=== PATIENT | male | born 1940 | race Caucasian/White ===

== ENCOUNTER 2016-09-24 05:37 | Day surgery (SDC) | payer BC ==
[2016-09-19 09:58] VITALS: BMI 28.0
--- NOTE | 2016-09-19 10:40 | PAT Medication Instructions ---
Service Date Sep 19, 2016. Current Home Medication List Acetaminophen (Tylenol), 2 TAB PO Q8 PRN for Pain or Fever Alendronate Sodium (Fosamax), 1 TAB PO WK Aspirin (Aspirin Ec), 81 MG PO QPM Atorvastatin (Lipitor), 40 MG PO QPM Calcium/Vitamin D (Os-Shorty 500 Plus D), 1 TAB PO QPM Ibuprofen (Advil), 200 MG PO Q6 PRN for Pain Latanoprost (Xalatan 0.005% Oph Nenita), 1 DROPS OPB HS Lisinopril (Lisinopril), 1 TAB PO QAM Multivitamin (Multivitamin), 1 TAB PO QPM Timolol Maleate (Ophth) (Timoptic-Xe 0.5% Oph), 1 DROPS OPL QAM Medication Instructions For Your Scheduled Surgery - Check with surgeon for instructions: Aspirin (Aspirin Ec), 81 MG PO QPM Ibuprofen (Advil), 200 MG PO Q6 PRN for Pain - Continue as directed: Alendronate Sodium (Fosamax), 1 TAB PO WK (Mondays) - Hold the following medications the morning of surgery: Lisinopril (Lisinopril), 1 TAB PO QAM - Take the following medications the morning of surgery with a sip of water: Timolol Maleate (Ophth) (Timoptic-Xe 0.5% Oph), 1 DROPS OPL QAM Acetaminophen (Tylenol), 2 TAB PO Q8 PRN for Pain or Fever (if needed) - Take the following medications as scheduled the night before surgery: Multivitamin (Multivitamin), 1 TAB PO QPM Latanoprost (Xalatan 0.005% Oph Nenita), 1 DROPS OPB HS Calcium/Vitamin D (Os-Shorty 500 Plus D), 1 TAB PO QPM Atorvastatin (Lipitor), 40 MG PO QPM Acetaminophen (Tylenol), 2 TAB PO Q8 PRN for Pain or Fever (if needed) If you have any questions please call us at [phone] or [phone] or [phone]
[~2016-09-24] VITALS: Ht 167.6 cm; Wt 80.2 kg
[~2016-09-24 05:37] MED LIST: ACET-1256 PO; ALEN70TA2 PO; ASPI81TA28 PO; ATOR-24 PO; CALC500C70 PO; IBUP-1050 PO; LATA0.5S OPB; LSN40 PO; MULT-506 PO; TIMO0.5S2 OPL
[2016-09-24 05:56] VITALS: BP 168/91; PULSE 68; TEMP 36.8; O2SAT 96; Ht 167.6 cm; Wt 80.2 kg
[2016-09-24] MEDS ORDERED: LACTATED RINGER'S 1000ML 1,000 ML IV SCH (06:00)
[2016-09-24] MEDS ORDERED: CEFAZOLIN 2000 MG/60 ML D5W IV SCH (06:00)
[2016-09-24] MEDS ORDERED: ONDANSETRON INJ 2 MG/ML 2 ML VIAL ONE (06:40)
[2016-09-24] MEDS ORDERED: LIDOCAINE HCL 2% 2 ML VIAL (20MG/ML) ONE (06:40)
[2016-09-24] MEDS ORDERED: MIDAZOLAM HCL 1 MG/ML 2ML VIAL ONE (06:40)
[2016-09-24] MEDS ORDERED: PROPOFOL IV EMULSION 10 MG/ML 20 ML VIAL IV ONE ×2 (06:40→07:57)
[2016-09-24] MEDS ORDERED: DEXAMETHASONE SOD INJ 4 MG/ML VIAL ONE (06:40)
[2016-09-24] MEDS ORDERED: FENTANYL CITRATE INJ 50 MCG/1 ML 2 ML VIAL ONE (06:41)
--- NOTE | 2016-09-24 07:01 | History & Physical Bridge Note ---
H&P Re-Evaluation Bridge Note: I have examined the patient, reviewed the History & Physical and in the interval since the performance of the History & Physical I have noted the following changes of clinical significance: No changes noted
[2016-09-24] MEDS ORDERED: LIDOCAINE HCL 1% 20 ML VIAL ONE ×2 (07:02→07:46)
[2016-09-24] MEDS ORDERED: BACITRACIN OINT 15 GM TUBE ONE (07:02)
[2016-09-24] MEDS ORDERED: BUPIVACAINE 0.5 % 5 MG/1 ML MPF 30ML VIAL ONE ×2 (07:02→07:46)
[2016-09-24] MEDS ORDERED: ONDANSETRON INJ 2 MG/ML 2 ML VIAL IV PRN (07:30)
[2016-09-24] MEDS ORDERED: ATROPINE SULFATE 0.1 MG/ML 5ML SYR IV PRN (07:30)
[2016-09-24] MEDS ORDERED: FENTANYL CITRATE INJ 50 MCG/1 ML 2 ML VIAL IV PRN (07:30)
[2016-09-24] MEDS ORDERED: KETOROLAC TROMETHAMINE 15 MG/ML VIAL IV. PRN (07:30)
[2016-09-24] MEDS ORDERED: SODIUM CHLORIDE 0.9% 1000ML 1,000 ML IV SCH (08:23)
--- NOTE | 2016-09-24 08:26 | [facility] Post Operative Brief Note ---
Immediate Operative Summary Operative Date Sep 24, 2016. Pre-Operative Diagnosis Recurrent Right Inguinal Hernia Post-Operative Diagnosis Recurrent Right Inguinal Hernia Procedure(s) Performed Open Repair Recurrent Right Inguinal Hernia with Mesh Surgeon Dr. Parisi Health Care Analyst Surgeon(s) none Estimated Blood Loss 5 ML Findings right indrect inguinal hernia, recurrent Specimens NONE PER SURGEON Drains none Anesthesia sedation + local Complication(s) None Disposition Recovery Room / PACU
[2016-09-24] MEDS ORDERED: OXYC-57 PO (08:28)
[2016-09-24] MEDS ORDERED: OXYCODONE/ACETAMINOPHEN 5-325 TAB PO PRN (08:30)
[2016-09-24] MEDS ORDERED: MoRPHine SULFATE 2 MG/ML CARP IV PRN (08:30)
--- NOTE | 2016-09-24 08:32 | Discharge Instructions ---
Discharge Instructions Date of Service Sep 24, 2016. Visit Reason for Visit: Recurrent Right Inguinal Hernia Discharge Discharge Diagnosis / Problem: S/P open repair right inguinal hernia with mesh Discharge Goals Goal(s): Decrease discomfort, Improve function Activity Recommendations Activity Limitations: per Instructions/Follow-up section Lifting Limitations: no more than 25 pounds Exercise/Sports Limitations: rest today, gradually increase as tolerated May Resume Sexual Activity: when tolerated Shower/Bathe: may shower/bathe in 3 days Driving or Machine Use: resume 3 days after discharge Anesthesia . Post Anesthesia Instructions: If you have had General Anesthesia or IV Sedation: * Do not drive today. * Resume driving when surgeon permits. * Do not make important decisions or sign legal documents today. * Call surgeon for: 1. Temperature elevations greater than 101 degrees F. 2. Uncontrollable pain. 3. Excessive bleeding. 4. Persistent nausea and vomiting. 5. Medication intolerance (nausea, vomiting or rash). * For nausea and vomiting use only clear liquids such as: tea, soda, bouillon until nausea subsides, then gradually increase diet as tolerated. * If you have any concerns or questions, call your surgeon's office. If physician is unavailable and it is an emergency, call 911 or go to the nearest emergency room. . Instructions / Follow-Up Instructions / Follow-Up keep the dressing on for 4 days, he can take a shower on 09/27/2016, no driving while taking pain medicine, follow up 1 week, . Diet Recommendations Recommended Home Diet: resume previous diet Procedures Procedures Performed: Open Repair Recurrent Right Inguinal Hernia with Mesh Pending Studies Studies pending at discharge: no Medical Emergencies . Who to Call and When: Medical Emergencies: If at any time you feel your situation is an emergency, please call 911 immediately. . Non-Emergent Contact Non-Emergency issues call your: Surgeon Call Non-Emergent contact if: you have a fever, temperature is above 100.5, your pain is not controlled, your pain is worsening, wound has increased drainage, wound has increased redness . . "Provider Documentation" section prepared by Radha Parisi. . [place] Drug Monitoring Program Search Results: no issues identified
[2016-09-24 08:50] VITALS: BP 163/80; PULSE 51; TEMP 36.6; O2SAT 96
--- NOTE | 2016-09-24 08:57 | [facility] Operative Report ---
Operative Report Operative Date Sep 24, 2016. Pre-Operative Diagnosis Recurrent Right Inguinal Hernia Post-Operative Diagnosis Recurrent Right Inguinal Hernia Procedure(s) Performed Open Repair Recurrent Right Inguinal Hernia with Mesh Surgeon Dr. Parisi Interventional Physiatrist Surgeon(s) none Estimated Blood Loss 5 ML Findings right indirect inguinal hernia, recurrent, Fluids 800ml Specimens NONE PER SURGEON Drains none Anesthesia sedation + local Complication(s) None Disposition Recovery Room / PACU Indications patient is a 76 years old gentleman who presented recurrent right inguinal hernia, patient will require open repair right inguinal hernia with mesh, I talked to patient about benefits, risk alternate of the procedure, I indicates the risks may including but not limit, such as bleeding, infection, hernia recurrence, and chronically incision pain, patient understand he signed informed consent, I answered all questions. , Description of Procedure We bring patient to the operative room and put him on superior position, patient received SCD on the bilateral leg to prevent DVT, patient received 2 gm Ancef IV for prophylactic antibiotic, patient received sedation by his anesthesiology, the patient right lower abdomen and groin area prepped and dripped in routine sterilization, after timeout, injections of local anesthesai by using 1% lidocaine mix 0.5% Marcaine on right inguinal area, then I'm make a 4 cm incision on the right inguinal area, open by layer to reach cold structure, passing a Re over cord structure, and we found the patient had the right direct inguinal hernia, I mobilized the hernia sac then reduced the hernia sac to abdominal cavity, then I use extra large hernia plug to block the hernia sac, then I use prolene mesh to reinforce the posterior wall by using 2-0 Prolene suture continual running mesh to his inguinal ligament, medially the mesh to conjunt tender muscle layer, close external fashion layer by using 2-0 vcreyl, close subcutanous layer by using 2-0 vcreyl, close skin by using 4-0 suture, put the dressing on, all instrument, needle and spouze acount correct time 2, patient tolerated the procedure well, he was transfered to recovery room in stable condition. I attest to the content of the Intraoperative Record and any orders documented therein. Any exceptions are noted below.
--- NOTE | 2016-09-24 09:03 | Anesthesiology Progress Note ---
Anesthesia Post Op Note Date & Time Sep 24, 2016 at 09:02 Vital Signs Pain Intensity: 3.0 Vital Signs Past 12 Hours Date Time Temp Pulse Resp B/P (MAP) Pulse Ox O2 Delivery O2 Flow Rate FiO2 09/24/16 08:40 36.1 50 22 142/79 96 Room Air 09/24/16 08:30 52 18 145/82 100 Oxymask 4 09/24/16 08:24 36.1 50 16 132/74 100 Oxymask 10 09/24/16 05:56 36.8 68 18 168/91 (116) 96 Room Air Notes Mental Status: alert / awake / arousable, participated in evaluation Pt Amnestic to Procedure: Yes Nausea / Vomiting: adequately controlled Pain: adequately controlled Airway Patency, RR, SpO2: stable & adequate BP & HR: stable & adequate Hydration State: stable & adequate Anesthetic Complications: no major complications apparent
[2016-09-24 09:20] VITALS: BP_SYST 175; BP_SYST 189; BP_DIAS 84; BP_DIAS 86; PULSE 54; TEMP 36.5; TEMP 36.6; O2SAT 97; O2SAT 98
[2016-09-24 09:50] VITALS: BP 189/86; PULSE 54; TEMP 36.6; O2SAT 97
[2016-09-25] MEDS ORDERED: CEFAZOLIN IV 2,000 MG/60 ML D5W IV ONE (06:00)
== END 2016-09-24 10:05 | disposition home or self-care (01) ==
LOC: C.ACU 05:37
PROVIDERS: ATTEND Surgery
DX: K40.91 Unilateral inguinal hernia, without obstruction or gangrene, recurrent (principal); I10 Essential (primary) hypertension; K21.9 Gastro-esophageal reflux disease without esophagitis; G47.33 Obstructive sleep apnea (adult) (pediatric); H40.1190 Primary open-angle glaucoma, unspecified eye, stage unspecified; H44.20 Degenerative myopia, unspecified eye; C61 Malignant neoplasm of prostate; M81.0 Age-related osteoporosis without current pathological fracture; E78.5 Hyperlipidemia, unspecified; Z87.891 Personal history of nicotine dependence; Z79.82 Long term (current) use of aspirin; Z79.899 Other long term (current) drug therapy

== ENCOUNTER 2022-02-10 15:49 | Inpatient (IN) ==
[2022-02-10] MEDS ORDERED: fentaNYL citrate 100 MCG/2 ML VIAL IV STA ×2 (16:10→17:49)
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
[2022-02-10 16:58] LABS: Basophils # (auto) 0.05 K/uL (0-0.2); Basophils % (auto) 0.8 %; Eosinophils # (auto) 0.22 K/uL (0-0.50); Eosinophils % (auto) 3.5 %; Hematocrit (blood only) 36.3 % (40.1-51.0); Immature Granulocytes # (auto) 0.02 K/uL (0.00-0.02); Immature Granulocytes % (auto) 0.3 %; Lymphocytes # (auto) 0.53 K/uL (1.2-3.4); Lymphocytes % (auto) 8.4 %; Mean Corpuscular Hgb Conc 33.1 g/dL (32.0-36.0); Mean Corpuscular Volume 93.8 fL (80.0-100.0); Mean Platelet Volume 10.2 fL (9.4-12.4); Monocytes # (auto) 0.76 K/uL (0.24-0.82); Monocytes % (auto) 12.1 %; Neutrophils # (auto) 4.72 K/uL (1.4-6.5); Neutrophils % (auto) 74.9 %; Platelet Count 143 K/uL (130-400); RDW Coefficient of Variation 13.5 % (11.5-14.5); RDW Standard Deviation 46.5 fL (36.4-46.3); Red Blood Count 3.87 M/uL (4.63-6.08)
--- NOTE | 2022-02-10 17:07 | XRay Report ---
XR hip RT 2V w pelvis CLINICAL HISTORY: Fall. Right hip pain. COMPARISON STUDY: None. FINDINGS: Nondisplaced right inferior pubic ramus fracture. Probable nondisplaced fracture within the right superior pubic ramus. The sacrum appears intact. No dislocation. Brachytherapy seeds noted at the prostate gland. IMPRESSION: Nondisplaced right pubic ring fractures. ACT 112: Negative or not required by law. Electronically signed by: Yousif Zapata M.D. 02/10/2022 5:05 PM
--- NOTE | 2022-02-10 17:07 | XRay Report ---
XR chest 1V portable HISTORY: 81 years-old Male fall acute chest trauma status post fall COMPARISON: Thoracic spine radiographs 12/15/2008 TECHNIQUE: Semierect AP view of the chest FINDINGS: Cardiac silhouette is mildly enlarged. Atherosclerosis of the thoracic aorta. No pneumothorax, pleura l effusion, airspace consolidation or overt pulmonary edema. Bones appear grossly intact. IMPRESSION: No acute process. ACT 112: Negative or not required by law. The above report was generated using voice recognition software. It may contain grammatical, syntax o r spelling errors. Electronically signed by: Jose Espinoza M.D. 02/10/2022 5:06 PM
[2022-02-10 17:10] LABS: INR 1.3 (0.9-1.1); Prothrombin Time 13.5 Seconds (9.0-12.0)
--- NOTE | 2022-02-10 17:18 | XRay Report ---
XR knee RT 1 or 2V routine CLINICAL HISTORY: Fall. Right knee pain. COMPARISON STUDY: None. FINDINGS: No fracture or dislocation within the right knee. No significant knee effusion. Soft tissue s are unremarkable. Mild osteoarthritis within the right knee. IMPRESSION: No fracture or dislocation within the right knee. ACT 112: Negative or not required by law. Electronically signed by: Yousif Zapata M.D. 02/10/2022 5:16 PM
[2022-02-10 17:22] LABS: Albumin Globulin Ratio 1.4 (0.9-2); Albumin Level 3.6 gm/dl (3.4-5.0); BUN Creatinine Ratio 30.8 (10-20); Bilirubin,Total 1.9 mg/dl (0.2-1.0); Calcium 8.3 mg/dl (8.5-10.1); Est GFR (African American) 98.1 ml/min; Est GFR (Non-African American) 84.7 ml/min; Globulin 2.5 gm/dl (2.5-4.0); Magnesium 1.8 mg/dl (1.7-2.4); Potassium 3.8 mmol/L (3.5-5.1); Total Protein 6.1 gm/dl (6.0-8.3)
--- NOTE | 2022-02-10 17:24 | CT Scan Report ---
CT cervical spine wo con CLINICAL HISTORY: 81 years-old Male with fall. Acute head and neck injury status post fall COMPARISON: Head CT of same day. TECHNIQUE: Multiple axial CT images of the cervical spine were obtained without contrast. A dose low ering technique was utilized adhering to the principles of ALARA. FINDINGS: Demineralized appearance of the bones. Grade 1 anterolisthesis C7 on T1 is likely secondary to associated severe facet arthrosis. Multilevel intervertebral disc space narrowing, moderate at C5 -C6 and C6 or C7 with associated spondylitic spurring and posterior disc osteophyte complex formation s. Severe multilevel facet arthrosis with severe C1-C2 degeneration. Sclerotic focus measuring 1.0 cm is noted within the left lateral mass of C1 is suggestive of a probable bone island. Multilevel neur al foraminal narrowing. No acute fracture or subluxation is identified. No prevertebral edema. Complete opacification of the right maxillary sinus. Heterogeneous thyroid. T he visualized lung apices appear clear. IMPRESSION: No acute cervical spine fracture or subluxation identified. ACT 112: Negative or not required by law. The above report was generated using voice recognition software. It may contain grammatical, syntax o r spelling errors. Electronically signed by: Jose Espinoza M.D. 02/10/2022 5:22 PM
--- NOTE | 2022-02-10 17:24 | CT Scan Report ---
CT head/brain wo con CLINICAL HISTORY: 81 years-old Male with fall. Acute head and neck injury status post fall TECHNIQUE: Multiple axial CT images of the head were obtained without contrast. A dose lowering tech nique was utilized adhering to the principles of ALARA. CT DOSE: 1935.81 mGy.cm COMPARISON: CT cervical spine of same day, head CT 07/14/2007. FINDINGS: No acute intracranial hemorrhage, midline shift, intra-axial mass, hydrocephalus, territorial ischemi a or abnormal extra-axial collection. Age-related involutional changes with ex vacuo ventriculomegaly . White matter hypodensities suggestive of chronic microvascular ischemic disease. Fusiform dilation with tortuosity of the basilar artery again noted. 9 mm hyperdense extra-axial lesion adjacent to the posterior falx cerebri on image 17 series 2 has increased in size from the prior study suggestive of a benign meningioma. The calvarium is intact. Mastoid air cells are clear. Complete opacification of the right maxillary sinus. The remaining paranasal sinuses are generally clear. Indeterminate circumscribed 2.4 cm cystic structure of the superior left parietal calvarium, similar to prior and likely benign. Prior bilater al lens repair. IMPRESSION: 1. No acute intracranial abnormality or calvarial fracture. 2. Subcentimeter falx cerebri meningioma. 3. Complete opacification of the right maxillary sinus. ACT 112: Negative or not required by law. The above report was generated using voice recognition software. It may contain grammatical, syntax o r spelling errors. Electronically signed by: Jose Espinoza M.D. 02/10/2022 5:22 PM
--- NOTE | 2022-02-10 17:32 | CT Scan Report ---
ABDOMEN AND PELVIS CT WITHOUT CONTRAST CT DOSE: 291.63 mGy.cm HISTORY: Acute right hip pain status post fall pelvis and right hip radiographs 02/10/2022 TECHNIQUE: Multiaxial CT images of the abdomen and pelvis were performed without contrast. A dose lo wering technique was utilized adhering to the principles of ALARA. COMPARISON STUDY: Pelvis and hip radiographs of same day.. FINDINGS: Cardiomegaly with coronary artery calcifications. Punctate hyperdense foci noted throughout the right lung base suggestive of chronically aspirated barium. No pneumatosis or pneumoperitoneum. The unenhanced spleen, visualized pancreas and adrenal glands are unremarkable. The gallbladder appea rs to be contracted. There are numerous large cyst within the liver measuring up to approximately 9 c m. There are a few scattered coarse hepatic calcifications. The liver is mildly enlarged. Several hyp odensities within the liver are subcentimeter in size and are too small to characterize. Nonspecific bilateral perinephric stranding. 2 cm cyst of the interpolar right kidney demonstrates mi nimal layering milk of calcium. 4 mm hyperdense focus of the interpolar left kidney is too small to c haracterize. Brachial therapy seeds are noted within the enlarged prostate. Nonspecific urinary bladd er wall thickening with perivesicular stranding. Atherosclerosis of the abdominal aorta with tortuosi ty. Right retrocrural lymph node measures 1.1 cm and is indeterminate. No bowel obstruction or bowel wall thickening. Colonic diverticulosis. Moderate colonic fecal retenti on. Stool-filled loops of small bowel are also noted. No CT evidence of acute appendicitis. Findings suggestive of prior right inguinal hernia repair. Degenerative changes of the spine, pelvis and hips. Acute tonsillitis fractures of the right superior and inferior pubic rami are confirmed by CT. Mild to moderate osteoarthritis of the hips. No additional acute fracture or dislocation identified. No sa cral insufficiency fracture is seen. Levoscoliosis of the thoracolumbar junction. IMPRESSION: 1. Confirmation of the acute nondisplaced right superior and inferior pubic rami fractures. 2. No additional acute fracture or dislocation identified. 3. No acute posttraumatic intra-abdominal or intrapelvic abnormality. 3. Numerous hepatic cysts. 4. No bowel obstruction or bowel wall thickening. 5. Additional findings as above. ACT 112: Negative or not required by law. The above report was generated using voice recognition software. It may contain grammatical, syntax o r spelling errors. Electronically signed by: Jose Espinoza M.D. 02/10/2022 5:30 PM
--- NOTE | 2022-02-10 18:26 | History & Physical Report ---
Date of Service February 10, 2022 Assessment & Plan (1) Fracture of pubic ramus: Plan: Fall with trauma and subsequent Acute nondisplaced right superior and inferior pubic rami fractures. On baby aspirin but no other blood thinners. Consult ortho, PT/OT with plans for rehab placement. Supportive care with scheduled Tylenol and additional pain medication as needed. Maintain boyce for comfort. NWB until see by orthopedics and activity restrictions are more clearly defined. (2) Fall: Plan: PT/OT once cleared by ortho to bear weight. (3) ASHISH on CPAP: Plan: cont CPAP qHS while admitted. (4) HTN (hypertension): Plan: chronic, around goal, cont amlodipine 5mg per home regimen. (5) DVT prophylaxis: Plan: SCDs Full Code Dispo-to floor pending assessments, then likely set up for rehab. Appreciate case management assistance with this. Jamaica Steinberg DO [facility] Hospitalist History of Present Illness Chief Complaint: fall with pain, unable to walk Primary Care Provider: Luis Veronica MD 81-year-old man status posttraumatic fall in his garage last night presents with right hip pain. Work-up reveals acute pubic ring fracture. He is on baby aspirin. He denies any other wrist pain, knee pain, headache or other issues at this time. He denies chest pain or shortness of breath. He has been unable to stand or bear any weight on his legs since he fell. He has a h/o osteoporosis per records. Today he does report slight confusion and needed to ask at one point why he was here again. Denies any pain currently. Allergies Allergy/AdvReac Type Severity Reaction Status Date / Time No Known Allergies Allergy Verified 09/24/16 05:52 Home Medications Medication Instructions Recorded Confirmed Type Systane (propylene glycol) 2 drp OPB HS PRN Dry Eyes 02/10/22 02/10/22 History amlodipine 5 mg tablet 5 mg PO DAILY 02/10/22 02/10/22 History aspirin 81 mg tablet 81 mg PO DAILY 02/10/22 02/10/22 History atorvastatin 40 mg tablet 40 mg PO DAILY 02/10/22 02/10/22 History calcium carbonate 500 mg-vitamin 1 tab PO DAILY 02/10/22 02/10/22 History D3 5 mcg (200 unit) tablet (Calcium 500 + D) dorzolamide 22.3 mg-timolol 6.8 1 drp OPB BID 02/10/22 02/10/22 History mg/mL eye drops latanoprost 0.005 % eye drops 1 drp OPL HS 02/10/22 02/10/22 History omeprazole 20 mg tablet,delayed 20 mg PO DAILYBB 02/10/22 02/10/22 History release Past Med/Surg History Medical History After cataract not obscuring vision Benign meningioma of brain Bilateral inguinal hernia 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 Parisi) right, 09/2016 S/P repair of hydrocele left hydrocelectomy and spermatocelectomy 06/20/[address] Keating at [facility] S/P tonsillectomy Family History Mother Glaucoma Lupus Father Hypertension Stroke Social History Smoking Status: Former smoker Do You Dip or Chew Tobacco: No; Hx Alcohol Use: Yes Hx Substance Use: No Preferred Language: [employer] [employer] Required: No Beliefs That Will Affect Care: None Current Living Situation: Spouse Other Information That Helps Us Care for You: No Feels Safe at Home: Yes Safety Concerns: Feels Safe At This Time Assistive Devices: Cane and Glasses Review of Systems Review of Systems: All systems reviewed negative except as indicated in HPI above. Physical Exam Physical Exam: CONSTITUTIONAL: WNWD, vitals as above, generally well- appearing, NAD EYES: EOMI bilaterally, PERRL, normal conjunctivae, no scleral icterus ENT: external ear and nose normal, MMM NECK: trachea midline RESPIRATORY: clear to auscultation bilaterally, no crackles, rales or wheezes, normal respiratory effort CARDIOVASCULAR: regular rate and rhythm, S1 and 2 heard without murmurs, gallops or rubs, no JVD, no peripheral edema CHEST: inspection of chest was normal GASTROINTESTINAL: soft, nontender, , ND, no guarding MUSCULOSKELETAL: strength 5/5 throughout except not moving legs much in setting of pubic ring fracture, head is normocephalic and atraumatic, neck supple SKIN: warm and dry, no bruises that are clearly seen. NEUROLOGIC: CN 2-12 grossly intact, no sensory deficit, normal cognition, normal speech, no tremor PSYCHIATRIC: alert cooperative and oriented to person, place and time. Euthymic mood, makes good eye contact, language grossly intact, recent and remote memory grossly intact. Results & Data Results & Data ([facility]) Vital Signs (Past 12 Hours) Vital Signs Temp Pulse Pulse Resp BP BP Pulse Ox 02/10/22 17:30 63 18 98 02/10/22 16:26 95 02/10/22 15:55 36.9 C 63 16 146/79 H 96 02/10/22 15:55 36.9 C 63 16 146/79 H 96 O2 Del Method 02/10/22 17:30 Room Air 02/10/22 16:26 Room Air 02/10/22 15:55 Room Air 02/10/22 15:55 Room Air Laboratory Results Short CBC 02/10/22 Range/Units 16:22 WBC 6.30 (4.8-10.8) K/ul Hgb 12.0 L (14.0-18.0) g/dl Hct 36.3 L (40.1-51.0) % Plt Count 143 (130-400) K/uL BMP 02/10/22 16:22 Sodium 141 Potassium 3.8 Chloride 111 H Carbon Dioxide 26 BUN 24 H Creatinine 0.78 Glucose 185 H Calcium 8.3 L Cardiac Enzymes 02/10/22 Range/Units 16:22 Total Creatine Kinase 249 H (30-223) U/L Liver Function 11/28/22 Range/Units 16:22 Total Bilirubin 1.9 H (0.2-1.0) mg/dl AST 27 (13-39) U/L ALT 37 (7-52) U/L Alkaline Phosphatase 81 (34-104) U/L Albumin 3.6 (3.4-5.0) gm/dl Diagnostic Findings Cervical Spine CT 02/10/22 16:09 CT cervical spine wo con CLINICAL HISTORY: 81 years-old Male with fall. Acute head and neck injury status post fall COMPARISON: Head CT of same day. TECHNIQUE: Multiple axial CT images of the cervical spine were obtained without contrast. A dose lowering technique was utilized adhering to the principles of ALARA. FINDINGS: Demineralized appearance of the bones. Grade 1 anterolisthesis C7 on T1 is likely secondary to associated severe facet arthrosis. Multilevel intervertebral disc space narrowing, moderate at C5-C6 and C6 or C7 with associated spondylitic spurring and posterior disc osteophyte complex formations. Severe multilevel facet arthrosis with severe C1-C2 degeneration. Sclerotic focus measuring 1.0 cm is noted within the left lateral mass of C1 is suggestive of a probable bone island. Multilevel neural foraminal narrowing. No acute fracture or subluxation is identified. No prevertebral edema. Complete opacification of the right maxillary sinus. Heterogeneous thyroid. The visualized lung apices appear clear. IMPRESSION: No acute cervical spine fracture or subluxation identified. ACT 112: Negative or not required by law. The above report was generated using voice recognition software. It may contain grammatical, syntax or spelling errors. Electronically signed by: Jose Espinoza M.D. 02/10/2022 5:[address] 02/10/22 16:09 CT head/brain wo con CLINICAL HISTORY: 81 years-old Male with fall. Acute head and neck injury status post fall TECHNIQUE: Multiple axial CT images of the head were obtained without contrast. A dose lowering technique was utilized adhering to the principles of ALARA. CT DOSE: 1935.81 mGy.cm COMPARISON: CT cervical spine of same day, head CT 07/14/2007. FINDINGS: No acute intracranial hemorrhage, midline shift, intra-axial mass, hydrocephalus, territorial ischemia or abnormal extra-axial collection. Age- related involutional changes with ex vacuo ventriculomegaly. White matter hypodensities suggestive of chronic microvascular ischemic disease. Fusiform dilation with tortuosity of the basilar artery again noted. 9 mm hyperdense extra-axial lesion adjacent to the posterior falx cerebri on image 17 series 2 has increased in size from the prior study suggestive of a benign meningioma. The calvarium is intact. Mastoid air cells are clear. Complete opacification of the right maxillary sinus. The remaining paranasal sinuses are generally clear. Indeterminate circumscribed 2.4 cm cystic structure of the superior left parietal calvarium, similar to prior and likely benign. Prior bilateral lens repair. IMPRESSION: 1. No acute intracranial abnormality or calvarial fracture. 2. Subcentimeter falx cerebri meningioma. 3. Complete opacification of the right maxillary sinus. ACT 112: Negative or not required by law. The above report was generated using voice recognition software. It may contain grammatical, syntax or spelling errors. Electronically signed by: Jose Espinoza M.D. 02/10/2022 5:22 PM Hip/Pelvis X-Ray 02/10/22 16:09 XR hip RT 2V w pelvis CLINICAL HISTORY: Fall. Right hip pain. COMPARISON STUDY: None. FINDINGS: Nondisplaced right inferior pubic ramus fracture. Probable nondisplaced fracture within the right superior pubic ramus. The sacrum appears intact. No dislocation. Brachytherapy seeds noted at the prostate gland. IMPRESSION: Nondisplaced right pubic ring fractures. ACT 112: Negative or not required by law. Electronically signed by: Yousif Zapata M.D. 02/10/2022 5:05 PM Knee X-Ray 02/10/22 16:09 XR knee RT 1 or 2V routine CLINICAL HISTORY: Fall. Right knee pain. COMPARISON STUDY: None. FINDINGS: No fracture or dislocation within the right knee. No significant knee effusion. Soft tissues are unremarkable. Mild osteoarthritis within the right knee. IMPRESSION: No fracture or dislocation within the right knee. ACT 112: Negative or not required by law. Electronically signed by: Yousif Zapata M.D. 02/10/2022 5:16 PM Chest X-Ray 02/10/22 16:10 XR chest 1V portable HISTORY: 81 years-old Male fall acute chest trauma status post fall COMPARISON: Thoracic spine radiographs 12/15/2008 TECHNIQUE: Semierect AP view of the chest FINDINGS: Cardiac silhouette is mildly enlarged. Atherosclerosis of the thoracic aorta. No pneumothorax, pleural effusion, airspace consolidation or overt pulmonary edema. Bones appear grossly intact. IMPRESSION: No acute process. ACT 112: Negative or not required by law. The above report was generated using voice recognition software. It may contain grammatical, syntax or spelling errors. Electronically signed by: Jose Espinoza M.D. 02/10/2022 5:06 PM Abdomen/Pelvis CT 02/10/22 16:[address] WITHOUT CONTRAST CT DOSE: 291.63 mGy.cm HISTORY: Acute right hip pain status post fall pelvis and right hip radiographs 02/10/2022 TECHNIQUE: Multiaxial CT images of the abdomen and pelvis were performed without contrast. A dose lowering technique was utilized adhering to the principles of ALARA. COMPARISON STUDY: Pelvis and hip radiographs of same day.. FINDINGS: Cardiomegaly with coronary artery calcifications. Punctate hyperdense foci noted throughout the right lung base suggestive of chronically aspirated barium. No pneumatosis or pneumoperitoneum. The unenhanced spleen, visualized pancreas and adrenal glands are unremarkable. The gallbladder appears to be contracted. There are numerous large cyst within the liver measuring up to approximately 9 cm. There are a few scattered coarse hepatic calcifications. The liver is mildly enlarged. Several hypodensities within the liver are subcentimeter in size and are too small to characterize. Nonspecific bilateral perinephric stranding. 2 cm cyst of the interpolar right kidney demonstrates minimal layering milk of calcium. 4 mm hyperdense focus of the interpolar left kidney is too small to characterize. Brachial therapy seeds are noted within the enlarged prostate. Nonspecific urinary bladder wall thickening with perivesicular stranding. Atherosclerosis of the abdominal aorta with tortuosity. Right retrocrural lymph node measures 1.1 cm and is indeterminate. No bowel obstruction or bowel wall thickening. Colonic diverticulosis. Moderate colonic fecal retention. Stool-filled loops of small bowel are also noted. No CT evidence of acute appendicitis. Findings suggestive of prior right inguinal hernia repair. Degenerative changes of the spine, pelvis and hips. Acute tonsillitis fractures of the right superior and inferior pubic rami are confirmed by CT. Mild to moderate osteoarthritis of the hips. No additional acute fracture or dislocation identified. No sacral insufficiency fracture is seen. Levoscoliosis of the thoracolumbar junction. IMPRESSION: 1. Confirmation of the acute nondisplaced right superior and inferior pubic rami fractures. 2. No additional acute fracture or dislocation identified. 3. No acute posttraumatic intra-abdominal or intrapelvic abnormality. 3. Numerous hepatic cysts. 4. No bowel obstruction or bowel wall thickening. 5. Additional findings as above. ACT 112: Negative or not required by law. The above report was generated using voice recognition software. It may contain grammatical, syntax or spelling errors. Electronically signed by: Jose Espinoza M.D. 02/10/2022 5:30 PM Code Status & VTE Plan VTE Prophylaxis Plan VTE Prophylaxis will be ordered: Yes (1) Fracture of pubic ramus Encounter type: initial encounter Fracture type: closed Laterality: right Qualified Code(s): S32.591A - Other specified fracture of right pubis, initial encounter for closed fracture (2) Fall Encounter type: initial encounter Qualified Code(s): W19.XXXA - Unspecified fall, initial encounter
[2022-02-10 18:34] LABS: Appearance Urine Cloudy (Clear); Bacteria Urine Automated Negative (Negative); Bilirubin Urine Negative (Negative); Blood Urine Trace (Negative); Color Urine Yellow; Glucose Urine UA Negative (Negative); Ketones Urine Negative (Negative); Leukocyte Esterase Urine Negative (Negative); Nitrite Urine Negative (Negative); Protein Urine Negative (Negative); RBC Urine Automated 0-4 /hpf (0-4); Specific Gravity Urine 1.015 (1.000-1.030); Urobilinogen Urine Negative (Negative)
[2022-02-10] MEDS ORDERED: SYSTANE OPB PRN (18:50)
[2022-02-10] MEDS ORDERED: ONDANSETRON INJ 2 MG/ML 2 ML VIAL IV PRN (21:13)
[2022-02-10] MEDS ORDERED: POLYETHYLENE (MIRALAX) 17 GM PACK PO PRN (21:13)
[2022-02-10] MEDS: LATANOPROST 0.005% OP SOLN 2.5 ML BTL OPL SCH (21:53)
[2022-02-10] MEDS: DORZOLAMIDE/TIMOLOL 22.3/6.8MG/ML 10 ML BTL OPB SCH (21:53)
[2022-02-10] MEDS: ACETAMINOPHEN 500 MG TAB PO SCH (21:54)
[2022-02-11] MEDS: ACETAMINOPHEN 500 MG TAB PO SCH ×3 (05:35→21:14)
[2022-02-11] MEDS: PANTOprazole 40 MG TAB PO SCH (05:35)
--- NOTE | 2022-02-11 07:26 | Orthopedic Consultation ---
Date of Consultation February 11, 2022 Assessment & Plan (1) Fracture of pubic ramus: I reviewed his x-rays and CT scan. This is a stable pelvic ring injury. Recommend WBAT with a walker. Pain control per primary team. Recommend baby Aspirin BID for DVT prophylaxis. May discharge when PT feels he's safe from ortho standpoint. Follow-up [facility] in 2 weeks with x-rays. History of Present Illness Attending Physician: Jamaica Steinberg DO History of Present Illness 81-year-old man fell outside his house on Thursday. Immediate onset of right hip pain. Was crawling around his house on all 4's yesterday due to pain with walking, so came to ER yesterday. Work-up revealed acute superior and inferior pubic rami fractures. He is on baby aspirin. He denies any other wrist pain, knee pain, headache or other issues at this time. He denies chest pain or shortness of breath. He has been unable to stand or bear any weight on his legs since he fell. He has a h/o osteoporosis per records. Admitted to internal medicine service. Ortho consulted for fracture evaluation and management. Patient seen and examined on the floor. Denies any pain currently. Points to lateral hip where he feels most pain. Denies numbness/tingling. No prior injuries to the hip. Allergies Allergy/AdvReac Type Severity Reaction Status Date / Time No Known Allergies Allergy Verified 09/24/16 05:52 Home Medications Medication Instructions Recorded Confirmed Type Systane (propylene glycol) 2 drp OPB HS PRN Dry Eyes 02/10/22 02/10/22 History amlodipine 5 mg tablet 5 mg PO DAILY 02/10/22 02/10/22 History aspirin 81 mg tablet 81 mg PO DAILY 02/10/22 02/10/22 History atorvastatin 40 mg tablet 40 mg PO DAILY 02/10/22 02/10/22 History calcium carbonate 500 mg-vitamin 1 tab PO DAILY 02/10/22 02/10/22 History D3 5 mcg (200 unit) tablet (Calcium 500 + D) dorzolamide 22.3 mg-timolol 6.8 1 drp OPB BID 02/10/22 02/10/22 History mg/mL eye drops latanoprost 0.005 % eye drops 1 drp OPL HS 02/10/22 02/10/22 History omeprazole 20 mg tablet,delayed 20 mg PO DAILYBB 02/10/22 02/10/22 History release Patient History Medical History After cataract not obscuring vision Benign meningioma of brain Bilateral inguinal hernia 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 Parisi) right, 09/2016 S/P repair of hydrocele left hydrocelectomy and spermatocelectomy 06/20/[address] Keating at [facility] S/P tonsillectomy Family History Mother Glaucoma Lupus Father Hypertension Stroke Social History Smoking Status: Former smoker Do You Dip or Chew Tobacco: No; Hx Alcohol Use: Yes Hx Substance Use: No Preferred Language: Italian Monitoring Analyst Required: No Beliefs That Will Affect Care: None Current Living Situation: Spouse Other Information That Helps Us Care for You: No Feels Safe at Home: Yes Safety Concerns: Feels Safe At This Time Assistive Devices: Cane and Glasses Physical Exam Physical Exam: R leg: tender to palpation over superior pubic ramus, and over the greater trochanter. Tolerates gentle log roll. Able to do a heel slide in bed. Distally NVI. Results & Data ([facility]) Vital Signs (Past 12 Hours) Vital Signs Temp Pulse Pulse Resp BP Pulse Ox O2 Del Method 02/11/22 02:39 15 96 11/28/22 22:24 60 11 L 96 02/10/22 21:15 36.8 C 60 18 173/74 H 95 Room Air FiO2 02/11/22 02:39 21 02/10/22 22:24 21 02/10/22 21:15 Diagnostic Findings Cervical Spine CT 02/10/22 16:09 CT cervical spine wo con CLINICAL HISTORY: 81 years-old Male with fall. Acute head and neck injury status post fall COMPARISON: Head CT of same day. TECHNIQUE: Multiple axial CT images of the cervical spine were obtained without contrast. A dose lowering technique was utilized adhering to the principles of ALARA. FINDINGS: Demineralized appearance of the bones. Grade 1 anterolisthesis C7 on T1 is likely secondary to associated severe facet arthrosis. Multilevel intervertebral disc space narrowing, moderate at C5-C6 and C6 or C7 with associated spondylitic spurring and posterior disc osteophyte complex formations. Severe multilevel facet arthrosis with severe C1-C2 degeneration. Sclerotic focus measuring 1.0 cm is noted within the left lateral mass of C1 is suggestive of a probable bone island. Multilevel neural foraminal narrowing. No acute fracture or subluxation is identified. No prevertebral edema. Complete opacification of the right maxillary sinus. Heterogeneous thyroid. The visualized lung apices appear clear. IMPRESSION: No acute cervical spine fracture or subluxation identified. ACT 112: Negative or not required by law. The above report was generated using voice recognition software. It may contain grammatical, syntax or spelling errors. Electronically signed by: Jose Espinoza M.D. 02/10/2022 5:[address] 02/10/22 16:09 CT head/brain wo con CLINICAL HISTORY: 81 years-old Male with fall. Acute head and neck injury status post fall TECHNIQUE: Multiple axial CT images of the head were obtained without contrast. A dose lowering technique was utilized adhering to the principles of ALARA. CT DOSE: 1935.81 mGy.cm COMPARISON: CT cervical spine of same day, head CT 07/14/2007. FINDINGS: No acute intracranial hemorrhage, midline shift, intra-axial mass, hydrocephalus, territorial ischemia or abnormal extra-axial collection. Age- related involutional changes with ex vacuo ventriculomegaly. White matter hypodensities suggestive of chronic microvascular ischemic disease. Fusiform dilation with tortuosity of the basilar artery again noted. 9 mm hyperdense extra-axial lesion adjacent to the posterior falx cerebri on image 17 series 2 has increased in size from the prior study suggestive of a benign meningioma. The calvarium is intact. Mastoid air cells are clear. Complete opacification of the right maxillary sinus. The remaining paranasal sinuses are generally clear. Indeterminate circumscribed 2.4 cm cystic structure of the superior left parietal calvarium, similar to prior and likely benign. Prior bilateral lens repair. IMPRESSION: 1. No acute intracranial abnormality or calvarial fracture. 2. Subcentimeter falx cerebri meningioma. 3. Complete opacification of the right maxillary sinus. ACT 112: Negative or not required by law. The above report was generated using voice recognition software. It may contain grammatical, syntax or spelling errors. Electronically signed by: Jose Espinoza M.D. 02/10/2022 5:22 PM Hip/Pelvis X-Ray 02/10/22 16:09 XR hip RT 2V w pelvis CLINICAL HISTORY: Fall. Right hip pain. COMPARISON STUDY: None. FINDINGS: Nondisplaced right inferior pubic ramus fracture. Probable nondisplaced fracture within the right superior pubic ramus. The sacrum appears intact. No dislocation. Brachytherapy seeds noted at the prostate gland. IMPRESSION: Nondisplaced right pubic ring fractures. ACT 112: Negative or not required by law. Electronically signed by: Yousif Zapata M.D. 02/10/2022 5:05 PM Knee X-Ray 02/10/22 16:09 XR knee RT 1 or 2V routine CLINICAL HISTORY: Fall. Right knee pain. COMPARISON STUDY: None. FINDINGS: No fracture or dislocation within the right knee. No significant knee effusion. Soft tissues are unremarkable. Mild osteoarthritis within the right knee. IMPRESSION: No fracture or dislocation within the right knee. ACT 112: Negative or not required by law. Electronically signed by: Yousif Zapata M.D. 02/10/2022 5:16 PM Chest X-Ray 02/10/22 16:10 XR chest 1V portable HISTORY: 81 years-old Male fall acute chest trauma status post fall COMPARISON: Thoracic spine radiographs 12/15/2008 TECHNIQUE: Semierect AP view of the chest FINDINGS: Cardiac silhouette is mildly enlarged. Atherosclerosis of the thoracic aorta. No pneumothorax, pleural effusion, airspace consolidation or overt pulmonary edema. Bones appear grossly intact. IMPRESSION: No acute process. ACT 112: Negative or not required by law. The above report was generated using voice recognition software. It may contain grammatical, syntax or spelling errors. Electronically signed by: Jose Espinoza M.D. 02/10/2022 5:06 PM Abdomen/Pelvis CT 02/10/22 16:[address] WITHOUT CONTRAST CT DOSE: 291.63 mGy.cm HISTORY: Acute right hip pain status post fall pelvis and right hip radiographs 02/10/2022 TECHNIQUE: Multiaxial CT images of the abdomen and pelvis were performed without contrast. A dose lowering technique was utilized adhering to the principles of ALARA. COMPARISON STUDY: Pelvis and hip radiographs of same day.. FINDINGS: Cardiomegaly with coronary artery calcifications. Punctate hyperdense foci noted throughout the right lung base suggestive of chronically aspirated barium. No pneumatosis or pneumoperitoneum. The unenhanced spleen, visualized pancreas and adrenal glands are unremarkable. The gallbladder appears to be contracted. There are numerous large cyst within the liver measuring up to approximately 9 cm. There are a few scattered coarse hepatic calcifications. The liver is mildly enlarged. Several hypodensities with in the liver are subcentimeter in size and are too small to characterize. Nonspecific bilateral perinephric stranding. 2 cm cyst of the interpolar right kidney demonstrates minimal layering milk of calcium. 4 mm hyperdense focus of the interpolar left kidney is too small to characterize. Brachial therapy seeds are noted within the enlarged prostate. Nonspecific urinary bladder wall thickening with perivesicular stranding. Atherosclerosis of the abdominal aorta with tortuosity. Right retrocrural lymph node measures 1.1 cm and is indeterminate. No bowel obstruction or bowel wall thickening. Colonic diverticulosis. Moderate colonic fecal retention. Stool-filled loops of small bowel are also noted. No CT evidence of acute appendicitis. Findings suggestive of prior right inguinal hernia repair. Degenerative changes of the spine, pelvis and hips. Acute tonsillitis fractures of the right superior and inferior pubic rami are confirmed by CT. Mild to moderate osteoarthritis of the hips. No additional acute fracture or dislocation identified. No sacral insufficiency fracture is seen. Levoscoliosis of the thoracolumbar junction. IMPRESSION: 1. Confirmation of the acute nondisplaced right superior and inferior pubic rami fractures. 2. No additional acute fracture or dislocation identified. 3. No acute posttraumatic intra-abdominal or intrapelvic abnormality. 3. Numerous hepatic cysts. 4. No bowel obstruction or bowel wall thickening. 5. Additional findings as above. ACT 112: Negative or not required by law. The above report was generated using voice recognition software. It may contain grammatical, syntax or spelling errors. Electronically signed by: Jose Espinoza M.D. 02/10/2022 5:30 PM (1) Fracture of pubic ramus Encounter type: initial encounter Fracture type: closed Laterality: right Qualified Code(s): S32.591A - Other specified fracture of right pubis, initial encounter for closed fracture
[2022-02-11] MEDS: DORZOLAMIDE/TIMOLOL 22.3/6.8MG/ML 10 ML BTL OPB SCH ×2 (08:25→21:16)
[2022-02-11] MEDS: ATORVASTATIN 40 MG TAB PO SCH (08:28)
[2022-02-11] MEDS ORDERED: amLODIPine BESYLATE 5 MG TAB PO SCH (09:00)
[2022-02-11] MEDS ORDERED: ASPIRIN 81 MG ECTAB PO SCH (09:00)
--- NOTE | 2022-02-11 09:12 | Electrocardiogram Report ---
Test Reason : Blood Pressure : / mmHG Vent. Rate : 060 BPM Atrial Rate : 060 BPM P-R Int : 170 ms QRS Dur : 094 ms QT Int : 380 ms P-R-T Axes : 004 -18 -07 degrees QTc Int : 380 ms Normal sinus rhythm Voltage criteria for left ventricular hypertrophy Nonspecific T wave abnormality Poor R wave progression, consider anterior MD vs. lead placement vs. LVH Abnormal ECG When compared with ECG of 19-SEP-2016 10:45, T wave inversion now evident in Anterior leads Confirmed by Barron Hartman ([id number]) on 02/11/2022 9:11:41 AM Referred By: Luis Veronica Confirmed By:Lance Hartman
[2022-02-11 10:51] LABS: Hematocrit (blood only) 36.1 % (40.1-51.0); Hemoglobin 11.8 g/dl (14.0-18.0); Mean Corpuscular Hemoglobin 30.6 pg (25.0-34.0); Mean Corpuscular Hgb Conc 32.7 g/dL (32.0-36.0); Mean Corpuscular Volume 93.8 fL (80.0-100.0); Mean Platelet Volume 10.1 fL (9.4-12.4); Platelet Count 132 K/uL (130-400); RDW Coefficient of Variation 13.6 % (11.5-14.5); RDW Standard Deviation 46.5 fL (36.4-46.3); Red Blood Count 3.85 M/uL (4.63-6.08); White Blood Count 7.01 K/ul (4.8-10.8)
[2022-02-11 11:15] LABS: BUN Creatinine Ratio 20.3 (10-20); Calcium 8.2 mg/dl (8.5-10.1); Creatinine Clr Calc Pharmacy 75.8 ml/min; Est GFR (African American) 103.2 ml/min; Potassium 3.4 mmol/L (3.5-5.1)
[2022-02-11 11:16] LABS: Albumin Level 3.3 gm/dl (3.4-5.0); Bilirubin Direct 0.4 mg/dl (0-0.2); Bilirubin,Total 2.5 mg/dl (0.2-1.0); Total Protein 5.9 gm/dl (6.0-8.3)
[2022-02-11 11:18] LABS: INR 1.2 (0.9-1.1); Prothrombin Time 12.8 Seconds (9.0-12.0)
[2022-02-11] MEDS ORDERED: POTASSIUM CHLORIDE CRTAB 20 MEQ TABCR PO ONE (14:28)
--- NOTE | 2022-02-11 16:01 | Hospitalist Progress Note ---
Date of Service February 11, 2022 Assessment & Plan (1) Fracture of pubic ramus: Plan: Secondary to mechanical fall CT ABD/pelvis - acute nondisplaced right superior and inferior pubic rami fractures. Ortho consulted, recommends WBAT with walker. ASA 81 mg BID for DVT prophylaxis. Follow-up with [facility] ortho in 2 weeks with x-rays. Pain seems to be well controlled with scheduled Tylenol D/C Boyce tomorrow PT recommending rehab, CM following (2) HTN (hypertension): Plan: BP persistently elevated, will increase amlodipine to 10 mg daily Pain seems to be well controlled (3) Hypokalemia: Plan: Replace, follow BMP (4) Elevated bilirubin: Plan: T bili 1.9 --> 2.5, other LFTs WNL INR 1.2 Outpatient review of records show T bili 1.7 10/2021 and known hepatic and renal cyst, gallbladder polyp CT ABD/pelvis shows there are numerous large cyst within the liver measuring up to approximately 9 cm. There are a few scattered coarse hepatic calcifications. The liver is mildly enlarged. Several hypodensities within the liver are subcentimeter in size and are too small to characterize. 2 cm cyst of the interpolar right kidney demonstrates minimal layering milk of calcium. 4 mm hyperdense focus of the interpolar left kidney is too small to characterize. Continue to monitor LFTs, consider follow-up with GI as an outpatient (5) ASHISH on CPAP: Plan: CPAP as per home settings (6) DVT prophylaxis: Plan: ASA 81 mg BID as per ortho Dispo-PT/OT recommending rehab, CM following. Medically stable for discharge. Admission and Anticipated Discharge Date Admission Date: February 10, 2022 Supervising Physician Co-Signing Physician Notes I have seen and examined the patient and have discussed the case with the provider above. I agree with the assessment and plan as stated. Mr. Fragoso is denying pain today and is having some confusion requiring reorientation but then quickly remembers. for example, he didn't remember working with PT today. Then we were discussing rehab and he became confused about that. Ultimately rehab is being recommended and he and his , who is at bedside today, are ok with that. We discussed the importance of boyce removal to prevent hospital acquired infection and they requested to keep the boyce in one more day. LAbs reviewed and noted hyperbilirubinemia as above, however, abdomen is soft, NTND and he is not jaundiced. He reports eating without difficulty. Cont plan as stated above. DO Idris Subjective Follow-up for right pubic ramus fractures. Patient seen and examined. Reports pain is well controlled. Evaluated by Ortho, able to be WBAT. Patient denies chest pain shortness of breath. No abdominal pain or nausea. Boyce catheter remains in place. Review of Systems Review of Systems: ROS per HPI, all other systems reviewed and negative Physical Exam Constitutional: WD/WN, vitals as above Respiratory: normal respiratory effort, lungs clear to auscultation Cardiovascular: Rate/Rhythm: regular rate and regular rhythm Vessels: normal peripheral pulses Extremities: no edema Gastrointestinal (Abdomen): Percussion/Palpation: abdomen soft; abdomen nontender Skin: no rashes, warm and dry Neurologic: no focal motor deficits Psychiatric: A+Ox3, euthymic affect Results & Data Results & Data ([facility]) Vital Signs (Past 12 Hours) Vital Signs Temp Pulse Resp BP Pulse Ox O2 Del Method 02/11/22 15:08 36.8 C 55 L 18 163/76 H 97 Room Air 02/11/22 07:37 36.8 C 85 18 162/78 H 96 CPAP Laboratory Results Short CBC 02/10/22 02/11/22 Range/Units 16:22 10:17 WBC 6.30 7.01 (4.8-10.8) K/ul Hgb 12.0 L 11.8 L (14.0-18.0) g/dl Hct 36.3 L 36.1 L (40.1-51.0) % Plt Count 143 132 (130-400) K/uL BMP 02/10/22 02/11/22 16:22 10:17 Sodium 141 141 Potassium 3.8 3.4 L Chloride 111 H 110 H Carbon Dioxide 26 27 BUN 24 H 14 Creatinine 0.78 0.69 Glucose 185 H 131 H Calcium 8.3 L 8.2 L Cardiac Enzymes 02/10/22 02/11/22 Range/Units 16:22 10:17 Total Creatine Kinase 249 H 227 H (30-223) U/L Liver Function 02/10/22 02/11/22 Range/Units 16:22 10:17 Total Bilirubin 1.9 H 2.5 H (0.2-1.0) mg/dl Direct Bilirubin 0.4 H (0-0.2) mg/dl AST 27 23 (13-39) U/L ALT 37 30 (7-52) U/L Alkaline Phosphatase 81 74 (34-104) U/L Albumin 3.6 3.3 L (3.4-5.0) gm/dl Urine 02/10/ Range/Units 18:17 Urine Color Yellow Urine Appearance Cloudy A (Clear) Urine pH 8.0 H (4.5-7.5) Ur Specific [place] 1.015 (1.000-1.030) Urine Protein Negative (Negative) Urine Glucose (UA) Negative (Negative) (1) Fracture of pubic ramus Encounter type: initial encounter Fracture type: closed Laterality: right Qualified Code(s): S32.591A - Other specified fracture of right pubis, initial encounter for closed fracture
[2022-02-11] MEDS ORDERED: amLODIPine BESYLATE 5 MG TAB PO ONE (16:04)
[2022-02-11] MEDS: ASPIRIN 81 MG ECTAB PO SCH (21:15)
[2022-02-11] MEDS: LATANOPROST 0.005% OP SOLN 2.5 ML BTL OPL SCH (21:16)
[2022-02-12] MEDS: PANTOprazole 40 MG TAB PO SCH (05:57)
[2022-02-12] MEDS: ACETAMINOPHEN 500 MG TAB PO SCH ×3 (05:57→20:42)
[2022-02-12] MEDS: DORZOLAMIDE/TIMOLOL 22.3/6.8MG/ML 10 ML BTL OPB SCH ×2 (08:42→20:41)
[2022-02-12] MEDS: ASPIRIN 81 MG ECTAB PO SCH ×2 (08:44→20:41)
[2022-02-12] MEDS: amLODIPine BESYLATE 5 MG TAB PO SCH (08:44)
[2022-02-12] MEDS: ATORVASTATIN 40 MG TAB PO SCH (08:44)
[2022-02-12 10:42] LABS: INR 1.1 (0.9-1.1); Prothrombin Time 11.9 Seconds (9.0-12.0)
[2022-02-12 11:00] LABS: Albumin Globulin Ratio 1.2 (0.9-2); Albumin Level 3.5 gm/dl (3.4-5.0); BUN Creatinine Ratio 22.2 (10-20); Bilirubin,Total 2.2 mg/dl (0.2-1.0); Calcium 8.3 mg/dl (8.5-10.1); Creatinine Clr Calc Pharmacy 72.6 ml/min; Est GFR (African American) 101.4 ml/min; Est GFR (Non-African American) 87.5 ml/min; Potassium 3.9 mmol/L (3.5-5.1); Total Protein 6.5 gm/dl (6.0-8.3)
--- NOTE | 2022-02-12 14:38 | Hospitalist Progress Note ---
Date of Service February 12, 2022 Assessment & Plan (1) Fracture of pubic ramus: Plan: Secondary to mechanical fall per Dr. Steinberg's notes with addendum: CT ABD/pelvis - acute nondisplaced right superior and inferior pubic rami fractures. Ortho consulted, recommends WBAT with walker. ASA 81 mg BID for DVT prophylaxis. Follow-up with [facility] ortho in 2 weeks with x-rays. Pain seems to be well controlled with scheduled Tylenol D/C Piña tomorrow PT recommending rehab, CM following 02/12 reports R hip, thigh and ankle pain with ambulation chect CT R hip and LE to r/o underlying fracture (2) HTN (hypertension): Plan: BP persistently elevated, will increase amlodipine to 10 mg daily Pain seems to be well controlled 02/12 BP improving (3) Hypokalemia: Plan: K normal now (4) Elevated bilirubin: Plan: T bili 1.9 --> 2.5, other LFTs WNL INR 1.2 Outpatient review of records show T bili 1.7 10/2021 and known hepatic and renal cyst, gallbladder polyp CT ABD/pelvis shows there are numerous large cyst within the liver measuring up to approximately 9 cm. There are a few scattered coarse hepatic calcifications. The liver is mildly enlarged. Several hypodensities within the liver are subcentimeter in size and are too small to characterize. 2 cm cyst of the interpolar right kidney demonstrates minimal layering milk of calcium. 4 mm hyperdense focus of the interpolar left kidney is too small to characterize. Continue to monitor LFTs, consider follow-up with GI as an outpatient 02/12 T andrae 2.2 monitor (5) ASHISH on CPAP: Plan: CPAP as per home settings (6) DVT prophylaxis: Plan: ASA 81 mg BID as per ortho Dispo-PT/OT recommending rehab, CM following. Medically stable for discharge. Admission and Anticipated Discharge Date Admission Date: February 10, 2022 Subjective ff up for R pubic ramus fracture, s/p fall, etc per RN patient has been intermittently confused seen resting in bed, comfortable not in distress oriented x 2, answers questions appropriately reports R hip, thigh pain, and ankle pain with walking no chest pain, dyspnea, palpitations, dizziness no other symptoms Review of Systems Review of Systems: all noted and negative except for above Physical Exam Physical Exam: General- oriented x 2, not in distress, speaks in sentences with no effort or accessory muscle use Eyes- anicteric Neck- no JVD Lungs- clear breath sounds bilaterally, no rales/wheezes Heart- normal rate, regular rhythm; no murmurs Abdomen- normal bowel sounds, nondistended, soft, nontender Extremities- no pretibial edema, no calf tenderness R hip: no erythema, edema (+) mild tenderness Neuro- alert, oriented x 2; no gross focal neurologic deficits Skin- warm & dry Results & Data Results & Data ([facility]) Vital Signs (Past 12 Hours) Vital Signs Temp Pulse Resp BP Pulse Ox O2 Del Method 02/12/22 07:06 36.4 C L 51 L 18 134/68 95 Room Air all noted and reviewed including below (1) Fracture of pubic ramus Encounter type: initial encounter Fracture type: closed Laterality: right Qualified Code(s): S32.591A - Other specified fracture of right pubis, initial encounter for closed fracture
--- NOTE | 2022-02-12 16:05 | CT Scan Report ---
CT hip RT wo con, CT tib/fib RT wo con, CT femur RT wo con HISTORY: 81 years-old Male persistent pain, r/o fracture acute pain of the pelvis and right lower ex tremity with known superior inferior pubic rami fractures COMPARISON: CT abdomen and pelvis 02/10/2022 TECHNIQUE: Multiple axial CT images of the right hip, femur, tibia and fibula were obtained without t he use of IV contrast. A dose lowering technique was used consistent with the principals of ALARA. FINDINGS: HIP: Acute fractures of the right inferior and superior pubic rami with only minimal cortical buckling ansuha ears unchanged. Scattered subcentimeter bone islands are again noted within the pelvis and proximal r ight femur. Mild to moderate osteoarthritis of the right hip. No additional acute fracture or disloca tion. The imaged intrapelvic structures are unremarkable with moderate colonic fecal retention. Decom pressed urinary bladder with wall thickening. Air is noted within the urinary bladder with Piña cath eter. Mild subcutaneous edema lateral to the right hip. Trace free fluid within the pelvis. Brachythe rapy seeds noted within the prostate. FEMUR: No acute fracture or dislocation. There is mild tricompartmental osteoarthritis of the knee. No suspi cious bone lesions or osseous erosions. Hydroceles with scrotal edema. Soft tissues and musculature o f the thigh appear unremarkable. Trace knee joint effusion. Ligaments and tendons of the knee are not well evaluated by CT technique. TIBIA/FIBULA: Unremarkable soft tissues. Thickening of the peroneal tendon suggestive of tendinosis. Mild osteoarth ritis of the ankle and imaged foot. No acute fracture, dislocation or osseous erosion identified. IMPRESSION: 1. Unchanged alignment of the acute right superior and inferior pubic rami fractures compared to the 02/10/2022 exam. 2. No additional acute fracture or dislocation identified within the imaged right lower extremity. ACT 112: Negative or not required by law. The above report was generated using voice recognition software. It may contain grammatical, syntax o r spelling errors. Electronically signed by: Jose Espinoza M.D. 02/12/2022 4:03 PM
[2022-02-12] MEDS: LATANOPROST 0.005% OP SOLN 2.5 ML BTL OPL SCH (20:41)
[2022-02-13] MEDS: ACETAMINOPHEN 500 MG TAB PO SCH ×2 (05:08→13:26)
[2022-02-13] MEDS: PANTOprazole 40 MG TAB PO SCH (05:11)
[2022-02-13] MEDS: ASPIRIN 81 MG ECTAB PO SCH (08:47)
[2022-02-13] MEDS: ATORVASTATIN 40 MG TAB PO SCH (08:47)
[2022-02-13] MEDS: amLODIPine BESYLATE 5 MG TAB PO SCH (08:47)
[2022-02-13] MEDS: DORZOLAMIDE/TIMOLOL 22.3/6.8MG/ML 10 ML BTL OPB SCH (08:48)
[2022-02-13] MEDS ORDERED: traMADol HCL 50 MG TABLET PO PRN (10:49)
--- NOTE | 2022-02-13 11:12 | Orthopedic Progress Note ---
Date of Service February 13, 2022 Assessment & Plan (1) Fracture of pubic ramus: Plan: Pt will continue to work with PT/OT Cont with walker for ambulating WBAT may need new walker if pt requests Cont with recommendation of Aspirin BID for DVT prophylaxis Ordered tramadol 50mg every 6 hours if needed for pain. Will defer to primary team if this is not controlling pain May discharge when PT feels he's safe from ortho standpoint. Follow-up [facility] in 2 weeks with x-rays. Present on Admission?: Yes Admission and Anticipated Discharge Date Admission Date: February 10, 2022 Subjective Pt is a 81 y.o male who is s/p an acute superior and inferior pubic rami fracture s/p a fall on 02/09/22. He was seen this am with nursing present, Paco VUONG. He was being assisted walking to bedside chair. He states he is having pain with ambulating. He rates the pain as 5/10. He is not taking anything for pain, per RN nothing is ordered for pt. He is requesting something for pain. He denies any dizziness, CP, SOB or calf pain. He denies any paresthesia in the LEs. He notes he has a walker at home but feels this is bulky. Review of Systems Review of Systems: Please refer to H&P Physical Exam Physical Exam: General: Pt is alert and oriented answering questions appropriately. NAD Musculoskeletal: Pt tolerates ambulating with walker and assistance to bedside chair with c/o pain. Once seated he is able to fully DF and PF ankles He is able to slowly extend the right knee and limited w/ hip flexion due to pain . Sensation is intact in BLE. Calf soft and nontender Bilaterally Results & Data ([facility]) Vital Signs (Past 12 Hours) Vital Signs Temp Pulse Resp BP Pulse Ox O2 Del Method 02/13/22 07:22 36.5 C 60 18 157/84 H 99 Room Air (1) Fracture of pubic ramus Encounter type: initial encounter Fracture type: closed Laterality: right Qualified Code(s): S32.591A - Other specified fracture of right pubis, initial encounter for closed fracture
--- NOTE | 2022-02-13 13:01 | Hospitalist Progress Note ---
Date of Service February 13, 2022 Assessment & Plan (1) Fracture of pubic ramus: Plan: Secondary to mechanical fall per Dr. Steinberg's notes with addendum: CT ABD/pelvis - acute nondisplaced right superior and inferior pubic rami fractures. Ortho consulted, recommends WBAT with walker. ASA 81 mg BID for DVT prophylaxis. Follow-up with [facility] ortho in 2 weeks with x-rays. Pain seems to be well controlled with scheduled Tylenol D/C Piña tomorrow PT recommending rehab, CM following CT right lower extremity: No new fractures Ambulating well with a walker Continue to monitor closely Fall precautions please, always ambulate with a walker Weightbearing as tolerated Follow-up with [facility] orthopedic service Dr. Raciel Gordon in 2-week (2) HTN (hypertension): Plan: BP elevated Amlodipine increased from 5 mg to 10 mg daily Blood pressure improving Monitor closely (3) Hypokalemia: Plan: K normal now (4) Elevated bilirubin: Plan: T bili 1.9 --> 2.5, other LFTs WNL INR 1.2 Outpatient review of records show T bili 1.7 10/2021 and known hepatic and renal cyst, gallbladder polyp CT ABD/pelvis shows there are numerous large cyst within the liver measuring up to approximately 9 cm. There are a few scattered coarse hepatic calcifications. The liver is mildly enlarged. Several hypodensities within the liver are subcentimeter in size and are too small to characterize. 2 cm cyst of the interpolar right kidney demonstrates minimal layering milk of calcium. 4 mm hyperdense focus of the interpolar left kidney is too small to characterize. Continue to monitor LFTs, consider follow-up with GI as an outpatient 02/12 T andrae 2.2 Continue to repeat LFTs in 1 week and monitor as an outpatient Further management and follow-up as an outpatient (5) ASHISH on CPAP: Plan: CPAP as per home settings (6) DVT prophylaxis: Plan: ASA 81 mg BID as per ortho Dispo-PT/OT recommending rehab Follow-up with primary care physician in 1 week Follow-up with orthopedic doctor Dr. Raciel Gordon in 2 weeks Admission and Anticipated Discharge Date Admission Date: February 10, 2022 Subjective Follow-up for between his fracture, etc. Patient comfortable, in good spirits Oriented x3 Answers all questions appropriately States he feels fine overall Denies pain in his hip today, ambulating with a walker with no issues Denies abdominal pain, nausea vomiting, fevers or chills no chest pain, dyspnea, palpitations, dizziness No other symptoms States that he is okay with being [facility] Review of Systems Review of Systems: all noted and negative except for above Physical Exam Physical Exam: General- oriented x 3, not in distress, speaks in sentences with no effort or accessory muscle use Eyes- anicteric Neck- no JVD Lungs- clear breath sounds bilaterally, no rales/wheezes Heart- normal rate, regular rhythm; no murmurs Abdomen- normal bowel sounds, nondistended, soft, nontender Extremities- no pretibial edema, no calf tenderness Neuro- alert, oriented x 3; no gross focal neurologic deficits Skin- warm & dry Results & Data Results & Data ([facility]) Vital Signs (Past 12 Hours) Vital Signs Temp Pulse Resp BP Pulse Ox O2 Del Method 02/13/22 07:22 36.5 C 60 18 157/84 H 99 Room Air all noted and reviewed including below (1) Fracture of pubic ramus Encounter type: initial encounter Fracture type: closed Laterality: right Qualified Code(s): S32.591A - Other specified fracture of right pubis, initial encounter for closed fracture
--- NOTE | 2022-02-13 13:22 | Discharge Summary ---
Discharge Summary Date of Service February 13, 2022 Notes For Next Care Provider Amlodipine increased from 5 mg to 10 mg daily. Aspirin increased from 81 mg daily to twice daily for DVT prophylaxis, per Ortho recommendations. Repeat liver panel in 1 week postdischarge to reevaluate elevated bilirubin. Further details noted below Medication Changes From Visit As per above Admission HPI Per Admitting Provider 81-year-old man status posttraumatic fall in his garage last night presents with right hip pain. Work-up reveals acute pubic ring fracture. He is on baby aspirin. He denies any other wrist pain, knee pain, headache or other issues at this time. He denies chest pain or shortness of breath. He has been unable to stand or bear any weight on his legs since he fell. He has a h/o osteoporosis per records. Today he does report slight confusion and needed to ask at one point why he was here again. Denies any pain currently. Admission Exam Per Admitting Provider CONSTITUTIONAL: WNWD, vitals as above, generally well-appearing, NAD EYES: EOMI bilaterally, PERRL, normal conjunctivae, no scleral icterus ENT: external ear and nose normal, MMM NECK: trachea midline RESPIRATORY: clear to auscultation bilaterally, no crackles, rales or wheezes, normal respiratory effort CARDIOVASCULAR: regular rate and rhythm, S1 and 2 heard without murmurs, gallops or rubs, no JVD, no peripheral edema CHEST: inspection of chest was normal GASTROINTESTINAL: soft, nontender, , ND, no guarding MUSCULOSKELETAL: strength 5/5 throughout except not moving legs much in setting of pubic ring fracture, head is normocephalic and atraumatic, neck supple SKIN: warm and dry, no bruises that are clearly seen. NEUROLOGIC: CN 2-12 grossly intact, no sensory deficit, normal cognition, normal speech, no tremor PSYCHIATRIC: alert cooperative and oriented to person, place and time. Euthymic mood, makes good eye contact, language grossly intact, recent and remote memory grossly intact. Principal Dx & Hospital Course #1 = Principal Diagnosis (1) Fracture of pubic ramus: Secondary to mechanical fall per Dr. Steinberg's notes with addendum: CT ABD/pelvis - acute nondisplaced right superior and inferior pubic rami fractures. Ortho consulted, recommends WBAT with walker. PT recommending rehab CT right lower extremity: No new fractures Ambulating well with a walker Denies pain today Continue to monitor closely Fall precautions please, always ambulate with a walker Weightbearing as tolerated ASA 81 mg BID for DVT prophylaxis. Follow-up with [facility] ortho in 2 weeks with x-rays. (2) HTN (hypertension): BP elevated Amlodipine increased from 5 mg to 10 mg daily Blood pressure improving Monitor closely (3) Hypokalemia: K normal now (4) Elevated bilirubin: T bili 1.9 --> 2.5, other LFTs WNL INR 1.2 Outpatient review of records show T bili 1.7 10/2021 and known hepatic and renal cyst, gallbladder polyp CT ABD/pelvis shows there are numerous large cyst within the liver measuring up to approximately 9 cm. There are a few scattered coarse hepatic calcifications. The liver is mildly enlarged. Several hypodensities within the liver are subcentimeter in size and are too small to characterize. 2 cm cyst of the interpolar right kidney demonstrates minimal layering milk of calcium. 4 mm hyperdense focus of the interpolar left kidney is too small to characterize. Continue to monitor LFTs, consider follow-up with GI as an outpatient 02/13 T andrae 2.2 Continue to repeat LFTs in 1 week and monitor as an outpatient Further management and follow-up as an outpatient (5) Delirium: Likely hospital delirium Improved this morning, oriented x3, answers all questions appropriately No signs of infection Continue to monitor closely (6) ASHISH on CPAP: CPAP as per home settings (7) DVT prophylaxis: ASA 81 mg BID as per ortho Dispo-PT/OT recommending rehab Follow-up with primary care physician in 1 week Follow-up with orthopedic doctor Dr. Raciel Gordon in 2 weeks Discharge Exam General- oriented x 3, not in distress, speaks in sentences with no effort or accessory muscle use Eyes- anicteric Neck- no JVD Lungs- clear breath sounds bilaterally, no rales/wheezes Heart- normal rate, regular rhythm; no murmurs Abdomen- normal bowel sounds, nondistended, soft, nontender Extremities- no pretibial edema, no calf tenderness Neuro- alert, oriented x 3; no gross focal neurologic deficits Skin- warm & dry Updated Medication List Medication Instructions Recorded Confirmed Type Systane (propylene glycol) 2 drp OPB HS PRN Dry Eyes 02/10/22 02/10/22 History atorvastatin 40 mg tablet 40 mg PO DAILY 02/10/22 02/10/22 History calcium carbonate 500 mg-vitamin 1 tab PO DAILY 02/10/22 02/10/22 History D3 5 mcg (200 unit) tablet (Calcium 500 + D) dorzolamide 22.3 mg-timolol 6.8 1 drp OPB BID 02/10/22 02/10/22 History mg/mL eye drops latanoprost 0.005 % eye drops 1 drp OPL HS 02/10/22 02/10/22 History omeprazole 20 mg tablet,delayed 20 mg PO DAILYBB 02/10/22 02/10/22 History release amlodipine 5 mg tablet (Norvasc) 10 mg PO DAILY 30 days #60 tabs 02/13/22 Rx aspirin 81 mg tablet,delayed 81 mg PO BID 30 days #60 tabs 02/13/22 Rx release Hospital Stay Data Consultations 02/10/22 17:55 ED Decision to Admit Stat 02/10/22 18:13 Consult Orthopedic Surgery Routine Diagnostic Imagining Performed Cervical Spine CT 02/10/22 16:09 CT cervical spine wo con CLINICAL HISTORY: 81 years-old Male with fall. Acute head and neck injury status post fall COMPARISON: Head CT of same day. TECHNIQUE: Multiple axial CT images of the cervical spine were obtained without contrast. A dose lowering technique was utilized adhering to the principles of ALARA. FINDINGS: Demineralized appearance of the bones. Grade 1 anterolisthesis C7 on T1 is likely secondary to associated severe facet arthrosis. Multilevel intervertebral disc space narrowing, moderate at C5-C6 and C6 or C7 with associated spondylitic spurring and posterior disc osteophyte complex formations. Severe multilevel facet arthrosis with severe C1-C2 degeneration. Sclerotic focus measuring 1.0 cm is noted within the left lateral mass of C1 is suggestive of a probable bone island. Multilevel neural foraminal narrowing. No acute fracture or subluxation is identified. No prevertebral edema. Complete opacification of the right maxillary sinus. Heterogeneous thyroid. The visualized lung apices appear clear. IMPRESSION: No acute cervical spine fracture or subluxation identified. ACT 112: Negative or not required by law. The above report was generated using voice recognition software. It may contain grammatical, syntax or spelling errors. Electronically signed by: Jose Espinoza M.D. 02/10/2022 5:[address] 02/10/22 16:09 CT head/brain wo con CLINICAL HISTORY: 81 years-old Male with fall. Acute head and neck injury status post fall TECHNIQUE: Multiple axial CT images of the head were obtained without contrast. A dose lowering technique was utilized adhering to the principles of ALARA. CT DOSE: 1935.81 mGy.cm COMPARISON: CT cervical spine of same day, head CT 07/14/2007. FINDINGS: No acute intracranial hemorrhage, midline shift, intra-axial mass, hydrocephalus, territorial ischemia or abnormal extra-axial collection. Age- related involutional changes with ex vacuo ventriculomegaly. White matter hypodensities suggestive of chronic microvascular ischemic disease. Fusiform dilation with tortuosity of the basilar artery again noted. 9 mm hyperdense extra-axial lesion adjacent to the posterior falx cerebri on image 17 series 2 has increased in size from the prior study suggestive of a benign meningioma. The calvarium is intact. Mastoid air cells are clear. Complete opacification of the right maxillary sinus. The remaining paranasal sinuses are generally clear. Indeterminate circumscribed 2.4 cm cystic structure of the superior left parietal calvarium, similar to prior and likely benign. Prior bilateral lens repair. IMPRESSION: 1. No acute intracranial abnormality or calvarial fracture. 2. Subcentimeter falx cerebri meningioma. 3. Complete opacification of the right maxillary sinus. ACT 112: Negative or not required by law. The above report was generated using voice recognition software. It may contain grammatical, syntax or spelling errors. Electronically signed by: Jose Espinoza M.D. 02/10/2022 5:22 PM Hip/Pelvis X-Ray 02/10/22 16:09 XR hip RT 2V w pelvis CLINICAL HISTORY: Fall. Right hip pain. COMPARISON STUDY: None. FINDINGS: Nondisplaced right inferior pubic ramus fracture. Probable nondisplaced fracture within the right superior pubic ramus. The sacrum appears intact. No dislocation. Brachytherapy seeds noted at the prostate gland. IMPRESSION: Nondisplaced right pubic ring fractures. ACT 112: Negative or not required by law. Electronically signed by: Yousif Zapata M.D. 02/10/2022 5:05 PM Knee X-Ray 02/10/22 16:09 XR knee RT 1 or 2V routine CLINICAL HISTORY: Fall. Right knee pain. COMPARISON STUDY: None. FINDINGS: No fracture or dislocation within the right knee. No significant knee effusion. Soft tissues are unremarkable. Mild osteoarthritis within the right knee. IMPRESSION: No fracture or dislocation within the right knee. ACT 112: Negative or not required by law. Electronically signed by: Yousif Zapata M.D. 02/10/2022 5:16 PM Chest X-Ray 02/10/22 16:10 XR chest 1V portable HISTORY: 81 years-old Male fall acute chest trauma status post fall COMPARISON: Thoracic spine radiographs 12/15/2008 TECHNIQUE: Semierect AP view of the chest FINDINGS: Cardiac silhouette is mildly enlarged. Atherosclerosis of the thoracic aorta. No pneumothorax, pleural effusion, airspace consolidation or overt pulmonary edema. Bones appear grossly intact. IMPRESSION: No acute process. ACT 112: Negative or not required by law. The above report was generated using voice recognition software. It may contain grammatical, syntax or spelling errors. Electronically signed by: Jose Espinoza M.D. 02/10/2022 5:06 PM Abdomen/Pelvis CT 02/10/22 16:[address] WITHOUT CONTRAST CT DOSE: 291.63 mGy.cm HISTORY: Acute right hip pain status post fall pelvis and right hip radiographs 02/10/2022 TECHNIQUE: Multiaxial CT images of the abdomen and pelvis were performed without contrast. A dose lowering technique was utilized adhering to the principles of ALARA. COMPARISON STUDY: Pelvis and hip radiographs of same day.. FINDINGS: Cardiomegaly with coronary artery calcifications. Punctate hyperdense foci noted throughout the right lung base suggestive of chronically aspirated barium. No pneumatosis or pneumoperitoneum. The unenhanced spleen, visualized pancreas and adrenal glands are unremarkable. The gallbladder appears to be contracted. There are numerous large cyst within the liver measuring up to approximately 9 cm. There are a few scattered coarse hepatic calcifications. The liver is mildly enlarged. Several hypodensities within the liver are subcentimeter in size and are too small to characterize. Nonspecific bilateral perinephric stranding. 2 cm cyst of the interpolar right kidney demonstrates minimal layering milk of calcium. 4 mm hyperdense focus of the interpolar left kidney is too small to characterize. Brachial therapy seeds are noted within the enlarged prostate. Nonspecific urinary bladder wall thickening with perivesicular stranding. Atherosclerosis of the abdominal aorta with tortuosity. Right retrocrural lymph node measures 1.1 cm and is indeterminate. No bowel obstruction or bowel wall thickening. Colonic diverticulosis. Moderate colonic fecal retention. Stool-filled loops of small bowel are also noted. No CT evidence of acute appendicitis. Findings suggestive of prior right inguinal hernia repair. Degenerative changes of the spine, pelvis and hips. Acute tonsillitis fractures of the right superior and inferior pubic rami are confirmed by CT. Mild to moderate osteoarthritis of the hips. No additional acute fracture or dislocation identified. No sacral insufficiency fracture is seen. Levoscoliosis of the thoracolumbar junction. IMPRESSION: 1. Confirmation of the acute nondisplaced right superior and inferior pubic rami fractures. 2. No additional acute fracture or dislocation identified. 3. No acute posttraumatic intra-abdominal or intrapelvic abnormality. 3. Numerous hepatic cysts. 4. No bowel obstruction or bowel wall thickening. 5. Additional findings as above. ACT 112: Negative or not required by law. The above report was generated using voice recognition software. It may contain grammatical, syntax or spelling errors. Electronically signed by: Jose Espinoza M.D. 02/10/2022 5:[address] 02/12/22 14:38 CT hip RT wo con, CT tib/fib RT wo con, CT femur RT wo con HISTORY: 81 years-old Male persistent pain, r/o fracture acute pain of the pelvis and right lower extremity with known superior inferior pubic rami fractures COMPARISON: CT abdomen and pelvis 02/10/2022 TECHNIQUE: Multiple axial CT images of the right hip, femur, tibia and fibula were obtained without the use of IV contrast. A dose lowering technique was used consistent with the principals of SOFIYA. FINDINGS: HIP: Acute fractures of the right inferior and superior pubic rami with only minimal cortical buckling appears unchanged. Scattered subcentimeter bone islands are again noted within the pelvis and proximal right femur. Mild to moderate osteoarthritis of the right hip. No additional acute fracture or dislocation. The imaged intrapelvic structures are unremarkable with moderate colonic fecal retention. Decompressed urinary bladder with wall thickening. Air is noted within the urinary bladder with Piña catheter. Mild subcutaneous edema lateral to the right hip. Trace free fluid within the pelvis. Brachytherapy seeds noted within the prostate. FEMUR: No acute fracture or dislocation. There is mild tricompartmental osteoarthritis of the knee. No suspicious bone lesions or osseous erosions. Hydroceles with scrotal edema. Soft tissues and musculature of the thigh appear unremarkable. Trace knee joint effusion. Ligaments and tendons of the knee are not well evaluated by CT technique. TIBIA/FIBULA: Unremarkable soft tissues. Thickening of the peroneal tendon suggestive of tendinosis. Mild osteoarthritis of the ankle and imaged foot. No acute fracture, dislocation or osseous erosion identified. IMPRESSION: 1. Unchanged alignment of the acute right superior and inferior pubic rami f ractures compared to the 02/10/2022 exam. 2. No additional acute fracture or dislocation identified within the imaged right lower extremity. ACT 112: Negative or not required by law. The above report was generated using voice recognition software. It may contain grammatical, syntax or spelling errors. Electronically signed by: Jose Espinoza M.D. 02/12/2022 4:[address] 02/12/22 14:38 CT hip RT wo con, CT tib/fib RT wo con, CT femur RT wo con HISTORY: 81 years-old Male persistent pain, r/o fracture acute pain of the pelvis and right lower extremity with known superior inferior pubic rami fractures COMPARISON: CT abdomen and pelvis 02/10/2022 TECHNIQUE: Multiple axial CT images of the right hip, femur, tibia and fibula were obtained without the use of IV contrast. A dose lowering technique was used consistent with the principals of ALARA. FINDINGS: HIP: Acute fractures of the right inferior and superior pubic rami with only minimal cortical buckling appears unchanged. Scattered subcentimeter bone islands are again noted within the pelvis and proximal right femur. Mild to moderate osteoarthritis of the right hip. No additional acute fracture or dislocation. The imaged intrapelvic structures are unremarkable with moderate colonic fecal retention. Decompressed urinary bladder with wall thickening. Air is noted within the urinary bladder with Piña catheter. Mild subcutaneous edema lateral to the right hip. Trace free fluid within the pelvis. Brachytherapy seeds noted within the prostate. FEMUR: No acute fracture or dislocation. There is mild tricompartmental osteoarthritis of the knee. No suspicious bone lesions or osseous erosions. Hydroceles with scrotal edema. Soft tissues and musculature of the thigh appear unremarkable. Trace knee joint effusion. Ligaments and tendons of the knee are not well evaluated by CT technique. TIBIA/FIBULA: Unremarkable soft tissues. Thickening of the peroneal tendon suggestive of tendinosis. Mild osteoarthritis of the ankle and imaged foot. No acute fracture, dislocation or osseous erosion identified. IMPRESSION: 1. Unchanged alignment of the acute right superior and inferior pubic rami fractures compared to the 02/10/2022 exam. 2. No additional acute fracture or dislocation identified within the imaged right lower extremity. ACT 112: Negative or not required by law. The above report was generated using voice recognition software. It may contain grammatical, syntax or spelling errors. Electronically signed by: Jose Espinoza M.D. 02/12/2022 4:[address] 02/12/22 14:38 CT hip RT wo con, CT tib/fib RT wo con, CT femur RT wo con HISTORY: 81 years-old Male persistent pain, r/o fracture acute pain of the pelvis and right lower extremity with known superior inferior pubic rami fractures COMPARISON: CT abdomen and pelvis 02/10/2022 TECHNIQUE: Multiple axial CT images of the right hip, femur, tibia and fibula were obtained without the use of IV contrast. A dose lowering technique was used consistent with the principals of ALARA. FINDINGS: HIP: Acute fractures of the right inferior and superior pubic rami with only minimal cortical buckling appears unchanged. Scattered subcentimeter bone islands are again noted within the pelvis and proximal right femur. Mild to moderate osteoarthritis of the right hip. No additional acute fracture or dislocation. The imaged intrapelvic structures are unremarkable with moderate colonic fecal retention. Decompressed urinary bladder with wall thickening. Air is noted within the urinary bladder with Piña catheter. Mild subcutaneous edema lateral to the right hip. Trace free fluid within the pelvis. Brachytherapy seeds noted within the prostate. FEMUR: No acute fracture or dislocation. There is mild tricompartmental osteoarthritis of the knee. No suspicious bone lesions or osseous erosions. Hydroceles with scrotal edema. Soft tissues and musculature of the thigh appear unremarkable. Trace knee joint effusion. Ligaments and tendons of the knee are not well evaluated by CT technique. TIBIA/FIBULA: Unremarkable soft tissues. Thickening of the peroneal tendon suggestive of tendinosis. Mild osteoarthritis of the ankle and imaged foot. No acute fracture, dislocation or osseous erosion identified. IMPRESSION: 1. Unchanged alignment of the acute right superior and inferior pubic rami fractures compared to the 02/10/2022 exam. 2. No additional acute fracture or dislocation identified within the imaged right lower extremity. ACT 112: Negative or not required by law. The above report was generated using voice recognition software. It may contain grammatical, syntax or spelling errors. Electronically signed by: Jose Espinoza M.D. 02/12/2022 4:03 PM Pending Results Patient Have Any Pending Studies at Discharge: Yes Discharge Instructions Given to Patient (Per Discharging Provider) PLEASE REFER TO YOUR NEW MEDICATION LIST AND FOLLOW INSTRUCTIONS CAREFULLY. YOUR NEW MEDICATIONS INCLUDE: Amlodipine increased from 5 mg to 10 mg daily Aspirin increased from 81 mg daily to twice daily for DVT prophylaxis per Ortho Monitor blood pressure daily. Repeat liver function test in 1 week to reevaluate elevated bilirubin. Monitor for signs of delirium. Fall precautions. PLEASE CALL YOUR PRIMARY CARE PHYSICIAN OR RETURN TO THE ER IF WITH WORSENING OF SYMPTOMS, INCLUDING Worsening of pain, problems with ambulation, worsening of confusion/delirium, etc. FOLLOW UP WITH PRIMARY CARE PHYSICIAN OUTLINED ABOVE. FOLLOW-UP WITH ORTHOPEDIC DOCTOR DR. RACIEL JACKSON IN 2WEEKS. Total Time Total Time Spent Total Time Spent (In Minutes): >30 minutes
== END 2022-02-13 16:12 | DRG 544 ==
LOC: ED 15:49 → 3N 18:13 → SUATTDRO 18:13 → 3N 20:55